=== PATIENT | male | born 2000 | race Caucasian/White ===

== ENCOUNTER 2022-05-04 14:17 | Emergency (ER) | payer BC ==
--- NOTE | 2022-05-04 15:44 | ER ---
Nurse's Notes [facility] Name: Nelson Bush Age: 21 yrs Sex: Male : 2000 Arrival Date: 05/04/2022 Time: 14:19 Bed 11 Private MD: Diagnosis: Acute upper respiratory infection, unspecified Presentation: 05/04 14:27 Chief complaint: Cough, congestion, body aches, fever, and chills since this morning. hb TMAX 99.5. Coronavirus screen: Client presents with at least one sign or symptom that may indicate coronavirus-19. Standard/surgical mask placed on the client. Provider contacted for isolation considerations. Ebola Screen: No symptoms or risks identified at this time. Initial Sepsis Screen: Does the patient meet any 2 criteria? No. Patient's initial sepsis screen is negative. Does the patient have a suspected source of infection? No. Patient's initial sepsis screen is negative. Risk Assessment: Do you want to hurt yourself or someone else? Patient reports no desire to harm self or others. Onset of symptoms was May 04, 2022. 14:27 Method Of Arrival: Ambulatory hb 14:27 Acuity: PANKAJ 4 hb Historical: - Allergies: 14:28 No Known Allergies; hb - Home Meds: 14:28 None [Active]; hb - PMHx: 14:28 None; hb - PSHx: 14:28 None; hb - Immunization history:: Adult Immunizations up to date. - Social history:: Smoking status: Patient denies any tobacco usage or history of. Vital Signs: 14:27 BP 142 / 80; Pulse 80; Resp 16; Temp 99; Pulse Ox 99% on R/A; Weight 111.13 kg; Height hb 6 ft. 2 in. (187.96 cm); Pain 0/10; 14:27 Body Mass Index 31.46 (111.13 kg, 187.96 cm) hb ED Course: 14:19 Patient arrived in ED. mr 14:22 Nydia Evangelista FNP-C is PHCP. snw 14:22 Gallito Bermudez MD is Attending Physician. snw 14:28 Triage completed. hb 14:28 Arm band placed on. hb 16:09 Lainey Matthews RN is Primary Nurse. iw Administered Medications: No medications were administered Outcome: 15:43 Discharge ordered by MD. ellis 16:18 Patient left the ED. iw Signatures: Nydia Evangelista FNP-C FNP-[place] Irene, RN RN iw Mavis Huynh RN RN hb
--- NOTE | 2022-05-04 15:44 | EDPHYS ---
Physician Documentation [facility] Name: Nelson Bush Age: 21 yrs Sex: Male : 2000 Arrival Date: 05/04/2022 Time: 14:19 Bed 11 Private MD: ED Physician Gallito Bermudez HPI: 05/04 15:01 This 21 yrs old Male presents to ER via Ambulatory with complaints of Flu Symptoms. snw 15:01 Onset: The symptoms/episode began/occurred suddenly, this morning. Modifying factors: snw The patient symptoms are alleviated by nothing. The patient has not experienced similar symptoms in the past. The patient has not recently seen a physician. Historical: - Allergies: 14:28 No Known Allergies; hb - Home Meds: 14:28 None [Active]; hb - PMHx: 14:28 None; hb - PSHx: 14:28 None; hb - Immunization history:: Adult Immunizations up to date. - Social history:: Smoking status: Patient denies any tobacco usage or history of. ROS: 15:01 Eyes: Negative for injury, pain, redness, and discharge. snw 15:01 Neck: Negative for injury, pain, and swelling, Cardiovascular: Negative for chest pain, palpitations, and edema. 15:01 Abdomen/GI: Negative for abdominal pain, nausea, vomiting, diarrhea, and constipation, Back: Negative for injury and pain, : Negative for injury, bleeding, discharge, and swelling, MS/Extremity: Negative for injury and deformity, Skin: Negative for injury, rash, and discoloration, Neuro: Negative for headache, weakness, numbness, tingling, and seizure. 15:01 Constitutional: Positive for body aches, fever, malaise, poor PO intake. 15:01 ENT: Positive for nasal discharge, sinus congestion, sore throat. 15:01 Respiratory: Positive for cough. Exam: 15:00 Constitutional: This is a well developed, well nourished patient who is awake, alert, snw and in no acute distress. Head/Face: Normocephalic, atraumatic. 15:00 Neck: Trachea midline, no thyromegaly or masses palpated, and no cervical lymphadenopathy. Supple, full range of motion without nuchal rigidity, or vertebral point tenderness. No Meningismus. Chest/axilla: Normal chest wall appearance and motion. Nontender with no deformity. No lesions are appreciated. Cardiovascular: Regular rate and rhythm with a normal S1 and S2. No gallops, murmurs, or rubs. Normal PMI, no JVD. No pulse deficits. 15:00 Abdomen/GI: Soft, non-tender, with normal bowel sounds. No distension or tympany. No guarding or rebound. No evidence of tenderness throughout. Back: No spinal tenderness. No costovertebral tenderness. Full range of motion. Skin: Warm, dry with normal turgor. Normal color with no rashes, no lesions, and no evidence of cellulitis. MS/ Extremity: Pulses equal, no cyanosis. Neurovascular intact. Full, normal range of motion. Neuro: Awake and alert, GCS 15, oriented to person, place, time, and situation. Cranial nerves II-XII grossly intact. Motor strength 5/5 in all extremities. Sensory grossly intact. Cerebellar exam normal. Normal gait. Psych: Awake, alert, with orientation to person, place and time. Behavior, mood, and affect are within normal limits. 15:00 Eyes: Conjunctiva: injected, in the left eye. 15:00 ENT: TM's: erythema, that is moderate, on the left, Nose: is normal, Mouth: is normal, Voice: is normal. 15:00 Respiratory: the patient does not display signs of respiratory distress, Respirations: normal, Breath sounds: wheezing: expiratory rare to right lower [place]. Vital Signs: 14:27 BP 142 / 80; Pulse 80; Resp 16; Temp 99; Pulse Ox 99% on R/A; Weight 111.13 kg; Height hb 6 ft. 2 in. (187.96 cm); Pain 0/10; 14:27 Body Mass Index 31.46 (111.13 kg, 187.96 cm) hb MDM: 14:29 Patient medically screened. allie 15:44 Data interpreted: hospital monitor: rate is 80 beats/min, Pulse oximetry: on room air is snw 99 %. Interpretation: normal. Data reviewed: vital signs, nurses notes. Counseling: I had a detailed discussion with the patient and/or guardian regarding: the historical points, exam findings, and any diagnostic results supporting the discharge/admit diagnosis, the presence of at least one elevated blood pressure reading (>120/80) during this emergency department visit, lab results, the need for outpatient follow up, for definitive care, to return to the emergency department if symptoms worsen or persist or if there are any questions or concerns that arise at home. Special discussion: I have referred the patient to see his PCP for further evaluation of high blood pressure. Based on the history and exam findings, there is no indication for further emergent testing or inpatient evaluation. I discussed with the patient/guardian the need to see the primary care provider for further evaluation of the symptoms. 05/04 14:48 Order name: Strep; Complete Time: 15:25 snw 05/04 14:55 Order name: Flu; Complete Time: 15:43 snw 05/04 15:30 Order name: Throat Culture EDMS Administered Medications: No medications were administered Disposition Summary: 05/04/22 15:43 Discharge Ordered Location: Home snw Condition: Stable snw Diagnosis - Acute upper respiratory infection, unspecified snw Followup: snw - With: Emergency Department - When: As needed - Reason: Worsening of condition Followup: snw - With: Private Physician - When: 2 - 3 days - Reason: Recheck today's complaints, Continuance of care, Re-evaluation by your physician Discharge Instructions: - Discharge Summary Sheet snw - Upper Respiratory Infection, Adult snw - Viral Respiratory Infection snw - Rehydration, Adult snw Forms: - Medication Reconciliation Form snw - Thank You Letter snw - Antibiotic Education snw - Prescription Opioid Use snw - Work release form snw Prescriptions: - Zyrtec 10 mg Oral Tablet - take 1 tablet by ORAL route once daily As needed; 20 tablet; Refills: 0, snw Product Selection Permitted - Tessalon Perles 100 mg Oral Capsule - take 1 capsule by ORAL route every 8 hours As needed; 15 capsule; Refills: 0, snw Product Selection Permitted - Pepcid 20 mg Oral Tablet - take 1 tablet by ORAL route once daily; 20 tablet; Refills: 0, Product snw Selection Permitted Signatures: Dispatcher [employer] EDMS Gallito Bermudez MD MD cha Waters, Shelly, EMERGENCY MEDICINE MEDICAL DIRECTOR-C EMERGENCY MEDICINE MEDICAL DIRECTOR-Csnw Mavis Huynh, RN RN Corrections: (The following items were deleted from the chart) 14:59 14:48 COVID-19/FLU A+[id number] ordered. EDMS EDMS
== END 2022-05-04 16:18 | disposition home or self-care (01) ==
LOC: ER 14:17
DX: J06.9 Acute upper respiratory infection, unspecified (principal)
CPT/HCPCS: 87070; 87081; 87804; 99281